=== PATIENT | female | born 1985 | race African-American/Black ===

== ENCOUNTER 2021-12-15 09:41 | Emergency (ER) | payer OTHER, SELFPAY ==
--- NOTE | ~2021-12-15 | US_ITS ---
EXAMINATION: US PELVIS CLINICAL INFORMATION: Left pelvic pain. Assess for torsion. Age 36. LMP 11/24/2021. COMPARISON: None TECHNIQUE: Ultrasound of the pelvis is performed using both transabdominal and transvaginal transducers along with color and pulse Doppler. Transvaginal imaging is performed due to inadequate visualization transabdominally. FINDINGS: Uterus: The uterus is anteverted and measures 8.8 x 3.9 x 5.9 cm. Volume 106 mL. The double wall endometrial thickness is within limits of normal for patient of reproductive age, measuring 1.2 cm. The endometrial echogenicity is mildly heterogeneous mid anterior portion. There is a small hyperechoic area 0.4 cm with focal color flow which may suggest a small endometrial polyp. Uterine contours are smooth. There is no visible fibroid. Adnexa: Both ovaries are visualized. There is normal color flow to the adnexa with low resistance waveforms. There is no ovarian torsion. There is small amount of ascites in the cul-de-sac. Right ovary measures 3.1 x 2.5 x 2.6 cm. There is an avascular bilobed cystic structure between the right ovary and uterus measuring 2.7 x 1.7 cm, either paraovarian cyst or hydrosalpinx. Left ovary measures 5.3 x 4.7 x 5.3 cm. Measurements include an intraovarian avascular hemorrhagic cyst measuring 3.9 x 3.6 x 3.7 cm. This shows geographic low-level internal echoes. US/US pelvic ovarian doppler IMPRESSION: Uterus: -Normal size. No visible fibroid. -Heterogeneous endometrial echogenicity with possible endometrial polyp, 4 mm. Adnexa: -Left: Intraovarian hemorrhagic cyst 3.9 cm. No torsion. -Right: Bilobed cyst between ovary and uterus 2.7 x 1.7 cm, either paraovarian cyst or hydrosalpinx. No torsion. -Small pelvic ascites.
--- NOTE | ~2021-12-15 | US_ITS ---
EXAMINATION: US PELVIS CLINICAL INFORMATION: Left pelvic pain. Assess for torsion. Age 36. LMP 11/24/2021. COMPARISON: None TECHNIQUE: Ultrasound of the pelvis is performed using both transabdominal and transvaginal transducers along with color and pulse Doppler. Transvaginal imaging is performed due to inadequate visualization transabdominally. FINDINGS: Uterus: The uterus is anteverted and measures 8.8 x 3.9 x 5.9 cm. Volume 106 mL. The double wall endometrial thickness is within limits of normal for patient of reproductive age, measuring 1.2 cm. The endometrial echogenicity is mildly heterogeneous mid anterior portion. There is a small hyperechoic area 0.4 cm with focal color flow which may suggest a small endometrial polyp. Uterine contours are smooth. There is no visible fibroid. Adnexa: Both ovaries are visualized. There is normal color flow to the adnexa with low resistance waveforms. There is no ovarian torsion. There is small amount of ascites in the cul-de-sac. Right ovary measures 3.1 x 2.5 x 2.6 cm. There is an avascular bilobed cystic structure between the right ovary and uterus measuring 2.7 x 1.7 cm, either paraovarian cyst or hydrosalpinx. Left ovary measures 5.3 x 4.7 x 5.3 cm. Measurements include an intraovarian avascular hemorrhagic cyst measuring 3.9 x 3.6 x 3.7 cm. This shows geographic low-level internal echoes. US/US pelvic and transvaginal IMPRESSION: Uterus: -Normal size. No visible fibroid. -Heterogeneous endometrial echogenicity with possible endometrial polyp, 4 mm. Adnexa: -Left: Intraovarian hemorrhagic cyst 3.9 cm. No torsion. -Right: Bilobed cyst between ovary and uterus 2.7 x 1.7 cm, either paraovarian cyst or hydrosalpinx. No torsion. -Small pelvic ascites.
[2021-12-15 10:05] VITALS: BP 126/79; PULSE 92; RESP 16; TEMP 36.5; O2SAT 97; BMI 36.8
[2021-12-15 10:26] LABS: MANUAL DIFF FLAG NO
[2021-12-15 10:27] LABS: Basophils Absolute Auto 0.1 X10*3/uL (0.0-0.2); Basophils Percent Auto 0.6 % (0-2); Eosinophils Absolute Auto 0.1 X10*3/uL (0.0-0.4); Eosinophils Percent Auto 1.5 % (0-4); Hemoglobin 13.1 g/dl (12.0-16.0); Imm Gran Abs Auto 0.03 X10*3/uL (0.00-0.03); Imm Gran Pct Auto 0.3 % (0.0-0.4); Lymphocytes Absolute Auto 4.2 X10*3/uL (1.2-4.9); Mean Corpuscular HGB Conc 32.8 g/dl (31.0-35.0); Mean Corpuscular Hemoglobin 27.9 pg (27.0-33.0); Mean Corpuscular Volume 85.3 fL (80.0-98.0); Mean Platelet Volume 10.3 fL (9.4-12.3); Monocytes Absolute Auto 0.6 X10*3/uL (0.1-1.2); Monocytes Percent Auto 6.7 % (2-11); Neutrophils Absolute Auto 4.3 x10*3/uL (2.0-8.3); Neutrophils Percent Auto 45.9 % (45-73); Platelet Count 469 X10*3/uL (160-400); Red Blood Count 4.69 X10*6/uL (4.20-5.50); Red Cell Distribution Width 13.4 % (11.0-16.0); White Blood Count 9.4 X10*3/uL (4.8-10.8)
[2021-12-15 10:28] LABS: Appearance Urine HAZY; Color Urine YELLOW; Glucose Urine UA NEG (NEG); Leukocyte Esterase Urine NEG (NEG); Nitrite Urine NEG (NEG); PH 5.5 (5.0-8.0); Specific Gravity - Urine >= 1.030 (1.005-1.025); UACC Culture Trigger NO; Urine Blood TRACE (NEG); Urine Ketones NEG (NEG); Urine Protein NEG (NEG-TRACE)
[2021-12-15 10:30] LABS: UPreg QC Valid YES; Urine Pregnancy NEGATIVE (NEGATIVE)
[2021-12-15 10:43] LABS: Anion Gap 18 (12-20); Blood Urea Nitrogen 14 mg/dL (9-16); Calcium 9.8 mg/dL (8.4-10.2); Carbon Dioxide 18 mmol/L (22-29); Chloride 106 mmol/L (96-108); Creatinine Clr Calc Pharmacy 149.4; Estimated Glomerular Filt Rate > 60; Glucose Random 91 mg/dL (60-115); Potassium 4.1 mmol/L (3.3-5.1); Sodium 138 mmol/L (135-145)
[2021-12-15 10:43] LABS: Bacteria Urine 2+ /LPF; RBC Urine 0-2 /HPF (0); Squamous Epithelial Cell Urine 2+ /LPF; WBC Urine 0 /HPF (0-4)
--- NOTE | 2021-12-15 11:45 | ED_ITS ---
HPI - Abdominal Pain General Chief Complaint: Abdominal Pain Stated Complaint: L side ovarian pain Time Seen by Provider: 12/15/21 11:39 Source: patient Mode of arrival: ambulatory Limitations: no limitations History of Present Illness HPI narrative: 36-year-old female presents with left lower abdominal pain which began suddenly at 05:00 o'clock this morning and woke the patient from her sleep. Patient describes the pain as sharp and stabbing with associated nausea. No vomiting, diarrhea, constipation, urinary symptoms, vaginal discharge. Patient is not currently sexually active. Patient reports about a year ago she was told that she had a left-sided ovarian cyst. Related Data Previous Rx's Medication Instructions Recorded ketorolac 10 mg tablet 10 mg PO TID PRN pain #14 tabs 12/15/21 Allergies Allergy/AdvReac Type Severity Reaction Status Date / Time No Known Allergies Allergy Verified 12/15/21 10:04 Review of Systems Review of Systems Yes all other systems are reviewed and are negative Constitutional: Reports no additional constitutional complaints, Denies body ache(s), Denies chills, Denies fever(s), Denies headache(s) and Denies weakness Eyes: Reports no additional eye complaints and Denies change in vision Reports system reviewed and no additional complaints, except as documented, Denies dizziness, Denies headache(s), Denies nasal congestion, Denies nasal discharge and Denies neck pain Cardiovascular: Reports no additional cardiovascular complaints, Denies chest pain, Denies leg edema and Denies dyspnea Respiratory: Reports no additional respiratory complaints, Denies cough and Denies dyspnea Gastrointestinal: Reports no additional gastrointestinal complaints, Reports abdominal pain, Denies diarrhea, Reports nausea and Denies vomiting Genitourinary: Reports no additional female genitourinary complaints and Denies urinary incontinence Musculoskeletal: Reports no additional musculoskeletal complaints, Denies back pain, Denies arthralgias, Denies joint swelling, Denies neck pain, Denies numbness and Denies tingling Skin/Breast: Reports system reviewed and no additional complaints, except as docu and Denies rash Reports system reviewed and no additional complaints, except as documented, Denies dizziness, Denies headache(s), Denies numbness, Denies tingling and Denies weakness PMFSH Past Medical History Attestation statement: The following information was validated with the patient. Source: old records reviewed and nursing notes reviewed Social History Social History Advance Directives: No Advance Directives Information Provided: Yes Patient : No Physical Exam ED Vital Signs: Vital Signs - 24 hr 12/15/21 10:05 Temperature 97.7 F Pulse Rate 92 Respiratory Rate 16 Blood Pressure 126/79 Pulse Oximetry 97 Oxygen Delivery Method Room Air BMI result Body Mass Index 36.8 Const Other: In pain General: alert Orientation/consciousness: patient oriented x3 Limitations: no limitations HENMT Head: Yes normal to inspection Ears: hearing grossly normal bilaterally General nose exam: Normal external nose present Face and sinus: Yes normal facial exam Eyes General: appearance normal, both eyes and all related structures Pupils: Equal, round and reactive pupils present Neck Neck: Yes normal visual inspection and Yes full ROM Chest Chest palpation & inspection: normal inspection of the chest Resp Effort & Inspection: normal respiratory effort Auscultation: clear to auscultation bilaterally Cardio Rate: regular rate Rhythm: regular rhythm Peripheral pulses: Peripheral pulses 2+ throughout GI Inspection: Yes normal to inspection Palpation (GI): Soft to palpation and Tenderness to palpation present (GI) (LLQ) Back/Spine/Pelvis Thoracic/Lumbar Spine: thoracic and lumbar spine normal to inspection Skin General skin exam: no rashes or lesions noted Neuro General: patient oriented x3 and moves all extremities Cranial nerves: Yes Equal, round and reactive pupils present Extrem General: Yes normal to inspection Course Course Course Narrative: Labs and urinalysis are negative. Pelvic ultrasound shows a left hemorrhagic ov loretta cyst with no evidence of torsion. Pain is improved with Toradol. Does not fit clinical picture of intermittent torsion. I did discuss this with the patient. I recommend she follow up outpatient with Gynecology. Reviewed worrisome signs and symptoms of when to return to the emergency department. Comfortable discharge home. MDM - Abdominal Pain MDM Narrative Medical decision making narrative: 36-year-old female here with left lower abdominal pain and nausea which began suddenly at 05:00 o'clock this morning is described as sharp and stabbing with a remote history of a left-sided ovarian cyst. Consider torsion. Will check ultrasound Doppler, labs and UA Differential Diagnosis Differential diagnosis narrative:: Ovarian torsion, ovarian cyst Medical Records Attestation: I reviewed the patient's medical records. Lab Data Attestation: I reviewed the patient's lab results. Result diagrams: 12/15/21 10:17 12/15/21 10:16 Labs: Lab Results 12/15/21 12/15/21 12/15/21 Range/Units 10:16 10:17 10:17 WBC 9.4 (4.8-10.8) X10*3/uL RBC 4.69 (4.20-5.50) X10*6/uL Hgb 13.1 (12.0-16.0) g/dl Hct 40.0 (37.0-47.0) % MCV 85.3 (80.0-98.0) fL MCH 27.9 (27.0-33.0) pg MCHC 32.8 (31.0-35.0) g/dl RDW 13.4 (11.0-16.0) % Plt Count 469 H (160-400) X10*3/uL MPV 10.3 (9.4-12.3) fL Immature Gran % (Auto) 0.3 (0.0-0.4) % Neut % (Auto) 45.9 (45-73) % Lymph % (Auto) 45.0 H (20-40) % [place] % (Auto) 6.7 (2-11) % Eos % (Auto) 1.5 (0-4) % Baso % (Auto) 0.6 (0-2) % Lymph # (Auto) 4.2 (1.2-4.9) X10*3/uL [place] # (Auto) 0.6 (0.1-1.2) X10*3/uL Eos # (Auto) 0.1 (0.0-0.4) X10*3/uL Baso # (Auto) 0.1 (0.0-0.2) X10*3/uL Abs Immat Gran (auto) 0.03 (0.00-0.03) X10*3/uL Absolute Neuts (auto) 4.3 (2.0-8.3) x10*3/uL Absolute Nucleated RBC 0.000 (0.0-0.012) X10*3/uL Nucleated RBC % (auto) 0.0 (0.0-0.2) /100WBC Sodium 138 (135-145) mmol/L Potassium 4.1 (3.3-5.1) mmol/L Chloride 106 (96-108) mmol/L Carbon Dioxide 18 L (22-29) mmol/L Anion Gap 18 (12-20) BUN 14 (9-16) mg/dL Creatinine 0.66 (0.5-1.4) mg/dL Estim Creat Clear Calc 149.4 Estimated GFR > 60 Random Glucose 91 (60-115) mg/dL Calcium 9.8 (8.4-10.2) mg/dL Total Bilirubin 0.6 (0.0-1.0) mg/dL Direct Bilirubin 0.3 (0.0-0.5) mg/dL AST 12 (5-31) U/L ALT 11 (0-31) U/L Alkaline Phosphatase 80 (39-117) U/L Total Protein 8.1 H (6.5-8.0) g/dL Albumin 4.3 (3.5-5.0) g/dL Lipase 8 (8-78) U/L Urine Color YELLOW Urine Appearance HAZY Urine pH 5.5 (5.0-8.0) Ur Specific Kidder >= 1.030 H (1.005-1.025) Urine Protein NEG (NEG-TRACE) MG/DL Urine Glucose (UA) NEG (NEG) MG/DL Urine Ketones NEG (NEG) MG/DL Urine Blood TRACE (NEG) Urine Nitrite NEG (NEG) Ur Leukocyte Esterase NEG (NEG) Urine RBC 0-2 (0) /HPF Urine WBC 0 (0-4) /HPF Ur Squamous Epith Cells 2+ /LPF Urine Bacteria 2+ /LPF Urine Test (NEGATIVE) 12/15/21 Range/Units 10:17 WBC (4.8-10.8) X10*3/uL RBC (4.20-5.50) X10*6/uL Hgb (12.0-16.0) g/dl Hct (37.0-47.0) % MCV (80.0-98.0) fL MCH (27.0-33.0) pg MCHC (31.0-35.0) g/dl RDW (11.0-16.0) % Plt Count (160-400) X10*3/uL MPV (9.4-12.3) fL Immature Gran % (Auto) (0.0-0.4) % Neut % (Auto) (45-73) % Lymph % (Auto) (20-40) % [place] % (Auto) (2-11) % Eos % (Auto) (0-4) % Baso % (Auto) (0-2) % Lymph # (Auto) (1.2-4.9) X10*3/uL [place] # (Auto) (0.1-1.2) X10*3/uL Eos # (Auto) (0.0-0.4) X10*3/uL Baso # (Auto) (0.0-0.2) X10*3/uL Abs Immat Gran (auto) (0.00-0.03) X10*3/uL Absolute Neuts (auto) (2.0-8.3) x10*3/uL Absolute Nucleated RBC (0.0-0.012) X10*3/uL Nucleated RBC % (auto) (0.0-0.2) /100WBC Sodium (135-145) mmol/L Potassium (3.3-5.1) mmol/L Chloride (96-108) mmol/L Carbon Dioxide (22-29) mmol/L Anion Gap (12-20) BUN (9-16) mg/dL Creatinine (0.5-1.4) mg/dL Estim Creat Clear Calc Estimated GFR Random Glucose (60-115) mg/dL Calcium (8.4-10.2) mg/dL Total Bilirubin (0.0-1.0) mg/dL Direct Bilirubin (0.0-0.5) mg/dL AST (5-31) U/L ALT (0-31) U/L Alkaline Phosphatase (39-117) U/L Total Protein (6.5-8.0) g/dL Albumin (3.5-5.0) g/dL Lipase (8-78) U/L Urine Color Urine Appearance Urine pH (5.0-8.0) Ur Specific Kidder (1.005-1.025) Urine Protein (NEG-TRACE) MG/DL Urine Glucose (UA) (NEG) MG/DL Urine Ketones (NEG) MG/DL Urine Blood (NEG) Urine Nitrite (NEG) Ur Leukocyte Esterase (NEG) Urine RBC (0) /HPF Urine WBC (0-4) /HPF Ur Squamous Epith Cells /LPF Urine Bacteria /LPF Urine Test NEGATIVE (NEGATIVE) Imaging Data Pelvic ultrasound: Attestation: I personally reviewed and interpreted this imaging study as follows: Radiologist's impression: [address] [address] Ultrasound Report Signed Patient: Taco Arias MR#: [id number] : 1985 Acct:[id number] Age/Sex: 36 / F ADM Date: 12/15/21 Loc: [facility].ED Attending Dr: Ordering Physician: Helena Siegel MD Date of Service: 12/15/21 Procedure(s): US pelvic and transvaginal Accession Number(s): [id number] cc: Helena Siegel MD~ EXAMINATION:? US PELVIS CLINICAL INFORMATION:? Left pelvic pain. Assess for torsion. Age 36. LMP 11/24/2021. COMPARISON: None TECHNIQUE: Ultrasound of the pelvis is performed using both transabdominal and transvaginal transducers along with color and pulse Doppler. Transvaginal imaging is performed due to inadequate visualization transabdominally. FINDINGS: Uterus: The uterus is anteverted and measures 8.8 x 3.9 x 5.9 cm.? Volume 106 mL. The double wall endometrial thickness is within limits of normal for patient of reproductive age, measuring 1.2 cm.? The endometrial echogenicity is mildly heterogeneous mid anterior portion. There is a small hyperechoic area 0.4 cm with focal color flow which may suggest a small endometrial polyp. Uterine contours are smooth. There is no visible fibroid. Adnexa: Both ovaries are visualized. There is normal color flow to the adnexa with low resistance waveforms. There is no ovarian torsion.? There is small amount of ascites in the cul-de-sac. Right ovary measures 3.1 x 2.5 x 2.6 cm. There is an avascular bilobed cystic structure between the right ovary and uterus measuring 2.7 x 1.7 cm, either paraovarian cyst or hydrosalpinx. Left ovary measures 5.3 x 4.7 x 5.3 cm. Measurements include an intraovarian avascular hemorrhagic cyst measuring 3.9 x 3.6 x 3.7 cm. This shows geographic low-level internal echoes. US/US pelvic and transvaginal IMPRESSION: Uterus: -Normal size. No visible fibroid. -Heterogeneous endometrial echogenicity with possible endometrial polyp, 4 mm. ? Adnexa: -Left: Intraovarian hemorrhagic cyst 3.9 cm. No torsion. -Right: Bilobed cyst between ovary and uterus 2.7 x 1.7 cm, either paraovarian cyst or hydrosalpinx. No torsion. -Small pelvic ascites. ? Discharge Plan Discharge Clinical Impression: Hemorrhagic cyst of left ovary Patient Disposition: Home, Self-Care Instructions: Ovarian Cyst (ED) Additional Instructions: You may try your own ob/gyn or call ours for appointment Prescriptions: New ketorolac 10 mg tablet 10 mg PO TID PRN (Reason: pain) Qty: 14 0RF Referrals: Mark Hunter MD [Physician] - 2 weeks Stand Alone Forms: Work/School Release
[2021-12-15] MEDS: Ketorolac Tromethamine 60 MG/2 ML VIAL IM (11:59)
[2021-12-15 12:12] LABS: Alanine Aminotransferase 11 U/L (0-31); Albumin Level 4.3 g/dL (3.5-5.0); Alkaline Phosphatase 80 U/L (39-117); Aspartate Amino Transferase 12 U/L (5-31); Bilirubin Direct 0.3 mg/dL (0.0-0.5); Bilirubin Total 0.6 mg/dL (0.0-1.0); Lipase 8 U/L (8-78); Total Protein 8.1 g/dL (6.5-8.0)
== END 2021-12-15 15:03 | disposition home or self-care (01) ==
PROVIDERS: Nurse Practitioner Family; Emergency Provider Student in an Organized Health Care Education/Training Program; PCP Internal Medicine
DX: N83.202 Unspecified ovarian cyst, left side (principal); R10.32 Left lower quadrant pain
CPT/HCPCS: 36415; 76830; 76856; 80048; 80076; 81001; 81025; 83690; 85025; 93975; 96372; 99284; J1885

== ENCOUNTER 2025-03-26 11:30 | Outpatient (AMB) | payer OTHER, SELFPAY ==
--- NOTE | 2025-03-26 11:33 | A.PHYSOV ---
Vital Signs 03/26/25 11:34 Height 5 ft 7 in Weight 240 lb BMI 37.6 Intake Visit Reasons: call if soonerMRI FUV-SCANNED Intake Note: Patient is a 40 year old female in office today to review her lumbar spine MRI. Classroom Instructional Aide Required: No Allergies shellfish derived Allergy (Unknown, Verified 03/26/25 11:35) Unknown HPI Comments Details: History of Present Illness The patient is a 40-year-old female presenting with chronic lower back pain. The pain is localized to the lower back, specifically on the right side, and does not radiate to the legs. The pain is exacerbated by backward bending and is most severe in the lower lumbar region. The patient has undergone physical therapy for six weeks, which she feels worsened her condition. She is currently taking cyclobenzaprine for pain management. An MRI revealed bulging discs at the lower two lumbar levels and developing arthritis, causing narrowing where the nerve exits. The patient reports that her pain is primarily around the sacroiliac joint, with tenderness noted upon examination. She has declined cortisone injections due to past negative experiences with similar treatments in her family. She is considering alternative medications, including anti-inflammatories and natural supplements like turmeric. Pain Description - Onset: Chronic - Quality: Localized to lower back, right side - Exacerbating factors: Backward bending - Relieving factors: None mentioned - Interference: Affects daily activities due to pain severity [facility] Surgical History (Updated 03/26/25 @ 11:37 by Nathaly Marquez MA) History of cholecystectomy (~2017) Social History (Updated 03/26/25 @ 11:37 by Nathaly Marquez MA) Alcohol intake: current Alcohol intake frequency: does not drink Patient Tobacco Use Status: Never used Tobacco Use of substances other than those prescribed or required for medical reasons: No Current occupational status: employed Review of Systems Narrative Review of Systems - Musculoskeletal: Reports chronic lower back pain, denies leg pain Physical Exam Exam Exam: Physical Exam Lumbar Spine: Examination of her lumbar spine, there is no visible swelling or deformity. She is tender to lower lumbar facets as well as her right SI joint. She has full range of motion of her lumbar spine. She does loading. Special Tests: Lhermittes sign was negative Heel Toe walk is normal Left straight leg raise: Negative Right straight leg raise: Negative Special tests Nasir test is positive right Ganslen's test is right SI Joint compression test negative Lavonne test negative Piriformis stretch is negative Lower Extremities: Full range of motion bilateral lower extremities. No calf pain or edema. Neuro: Sensation: Intact to lower extremities bilaterally Strength L2 (Psoas): 5/5 on the left and 5/5 on the right. L3 (Quads): 5/5 on the left and 5/5 on the right. L4 (Ant tibialis): 5/5 on the left and 5/5 on the right. L5 (EHL) 5/5 on the left and 5/5 on the right. S1 (Gastroc): 5/5 on the left and 5/5 on the right. DTR L4: (Patellar) Left 2 Right 2 S1: (Achilles) Left 1 Right 1 Babinski Downgoing No pathologic clonus. No involuntary movement. Vital Signs: BMI result Body Mass Index 37.6 Assessment & Plan Assessment & Plan (1) Vertebrogenic low back pain: Code(s): M54.51 - Vertebrogenic low back pain Category: Medical (2) Sacroiliitis: Code(s): M46.1 - Sacroiliitis, not elsewhere classified Category: Medical Plan Pain Management - Affect: Pain impacts daily activities - Analgesia: Current medication is cyclobenzaprine; pain level reported as 7/10 - Adverse Effects: None reported - Activities of Daily Living: Pain interferes with daily functions - Aberrant Drug Related Behaviors: None reported Plan Patient was informed and verbally consented to the use of an ambient scribe for clinic note documentation during this visit. 1. Lumbar Disc Bulge The patient has a lumbar disc bulge at the lower two levels, as confirmed by MRI, which is contributing to her lower back pain. Treatment options discussed include physical therapy, wound care coordinator, and medications such as anti-inflammatories. The patient has declined cortisone injections due to past negative experiences with similar treatments in her family. If she opts for injection I would recommend right SI joint injection. 2. Lumbar Arthritis The patient is developing arthritis in the lumbar region, which is causing narrowing where the nerve exits, contributing to her pain. Management includes considering anti-inflammatory medications and natural supplements like turmeric. I will prescribe ibuprofen 800 mg 3 times a day with food. 3. Sacroiliac Joint Pain The patient's pain is primarily localized around the sacroiliac joint, with tenderness noted upon examination. She has been advised to continue with wound care coordinator and consider alternative medications for pain relief. We discussed the benefits of proper nutrition and exercise to maintain a healthy body weight to improve longevity and function. We also discussed the benefits of proper lifting techniques, core strengthening and proper posture. Thank you for allowing me to participate in the care of your patient. Orders: Referrals Chiropractic Referral M54.51 - Vertebrogenic low back pain Medications: New ibuprofen 800 mg PO TID 90 tabs 2RF M54.51 - Vertebrogenic low back pain Coding Level of Care Code Tele Est Pt Level 4 (23345) Diagnoses Vertebrogenic low back pain M54.51 Sacroiliitis M46.1
[2025-03-26 11:34] VITALS: BMI 37.6
== END 2025-03-26 11:59 | disposition home or self-care (01) ==
LOC: HO.HPHYS 11:30
PROVIDERS: PCP Student in an Organized Health Care Education/Training Program; Visit Provider Physician Assistant
DX: M54.51 Vertebrogenic low back pain (principal); M46.1 Sacroiliitis, not elsewhere classified
CPT/HCPCS: 99214

== ENCOUNTER → 2025-03-26 11:30 | Outpatient (BNVA) | payer OTHER, SELFPAY | PROVIDERS: PCP Student in an Organized Health Care Education/Training Program; Visit Provider Physician Assistant | DX: G89.29 Other chronic pain (principal); M54.51 Vertebrogenic low back pain; M46.1 Sacroiliitis, not elsewhere classified | CPT/HCPCS: 99212 ==